=== PATIENT | male | born 1980 | race Caucasian/White ===

== ENCOUNTER 2020-09-28 23:54 | Emergency (ER) | payer BC ==
[2020-09-29 00:49] LABS: EOS # 0.1 (0.04-0.40); EOS % 1.5 % (0.0-4.0); HEMATOCRIT 48.5 % (42.0-52.0); HEMOGLOBIN 15.9 g/dL (13.5-18.0); LYMPH# 1.8 (1.50-4.00); MEAN CELL VOLUME 93 fl (78-100); MEAN CORPUSCULAR HEMOGLOBIN 31 pg (27-31); MEAN CORPUSCULAR HGB CONC 33 g/dL (33-37); MEAN PLATELET VOLUME 10.7 fl (7.4-10.4); MONO # 0.6 (0.20-0.80); NEU # 3.3 (1.40-6.50); PLATELET COUNT 264 K/mm3 (130-400); RED BLOOD COUNT 5.21 M/mm3 (4.20-5.60); RED CELL DISTRIBUTION WIDTH 14.1 % (11.5-14.5); WHITE BLOOD COUNT 5.8 K/mm3 (4.8-10.8)
[2020-09-29 01:01] LABS: ALBUMIN 3.8 g/dL (3.5-5.0); POTASSIUM 4.7 mmol/L (3.5-5.1)
[2020-09-29 01:02] LABS: CALCIUM 8.6 mg/dL (8.3-10.5)
[2020-09-29 01:03] LABS: TOTAL PROTEIN 6.9 g/dL (6.4-8.3)
[2020-09-29 01:05] LABS: TOTAL BILIRUBIN 0.3 mg/dL (0.2-1.2)
[2020-09-29] MEDS ORDERED: ELIQUIS5 MG PO (03:25)
[2020-09-29] MEDS ORDERED: LOPRESSOR 225 MG/TAB PO (03:25)
[2020-09-29 03:45] VITALS: BP 114/76
== END 2020-09-29 03:45 | disposition home or self-care (01) ==
LOC: ED 23:54
PROVIDERS: Family Medicine
DX: I48.91 Unspecified atrial fibrillation (principal)